=== PATIENT | female | born 1975 | race Native Hawaiian/Other Pacific Islander ===

== ENCOUNTER 2020-03-23 10:42 | Outpatient (CLI) | payer OTHER ==
[2020-03-23 11:03] LABS: PLATELET COUNT 300 K/uL (152-353)
[2020-03-23 11:17] LABS: POTASSIUM 3.6 mmol/L (3.6-5.2)
== END 2020-03-23 19:01 | disposition home or self-care (01) ==
LOC: LABW 10:42
PROVIDERS: ATTEND Nurse Practitioner Family
DX: R10.11 Right upper quadrant pain (principal)
CPT/HCPCS: 36415; 80053; 82150; 83690; 85027

== ENCOUNTER 2020-04-12 09:23 | Outpatient (CLI) | payer OTHER | END 2020-04-12 19:00 | disposition home or self-care (01) | LOC: LABW 09:23 | PROVIDERS: ATTEND Nurse Practitioner Family | DX: R10.11 Right upper quadrant pain (principal) | CPT/HCPCS: 36415; 86318 ==

== ENCOUNTER 2020-04-15 11:53 | Outpatient (CLI) | payer OTHER | END 2020-04-15 20:40 | disposition home or self-care (01) | LOC: NM 11:53 | PROVIDERS: ATTEND Nurse Practitioner Family | DX: R10.11 Right upper quadrant pain (principal) | CPT/HCPCS: A9537 ==

== ENCOUNTER 2022-05-19 09:43 | Outpatient (CLI) | payer OTHER | END 2022-05-19 19:36 | disposition home or self-care (01) | LOC: RAD 09:43 | PROVIDERS: ATTEND Nurse Practitioner Family | DX: M25.572 Pain in left ankle and joints of left foot (principal); M25.571 Pain in right ankle and joints of right foot ==